=== PATIENT | female | born 1990 | race Caucasian/White ===

== ENCOUNTER 2018-03-03 13:21 | Emergency (ER) | payer OTHER ==
[2018-03-03 13:54] VITALS: BP 126/71; PULSE 68; TEMP 98.7; BMI 29.9
--- NOTE | 2018-03-03 14:13 | PDOC ---
History of Present Illness - General Chief Complaint: Wound Stated Complaint: INFECTION IN LT KNEE Time Seen by Provider: 03/03/18 14:00 History Source: Patient Exam Limitations: Clinical Condition - History of Present Illness Initial Comments: 03/03/18 14:08 Patient with no past medical history presenting with complaint of left knee pain and swelling for 3 days and patient with redness over her left knee. Patient report had small open wound of unknown etiology on top of left knee which has been draining yellow fluid for 2 days. She reports she saw her PCP yesterday who started her on antibiotics but antibiotics is not covered by her insurance. She reported PCP took a swab of the wound to be sent to the lab. Patient sent here by PCP to rule out septic arthritis. Patient declined aspiration of the left knee area patient reported pain worse with ambulation to left knee. He denies fever, chills, body aches. Patient denies any other symptoms 03/03/18 14:14 Past History - Past Medical History Allergies/Adverse Reactions: Allergies Allergy/AdvReac Type Severity Reaction Status Date / Time No Known Allergies Allergy Verified 03/03/18 13:51 Home Medications: Ambulatory Orders Cephalexin [Keflex] 500 mg PO BID 7 Days #14 capsule 03/03/18 Ibuprofen 800 mg PO TID PRN #12 tablet 03/03/18 Mupirocin Ointment [Bactroban 2% Ointment -] 1 applic TP BID PRN #1 tube Sulfamethoxazole/Trimethoprim [Bactrim Ds -] 1 tab PO BID #14 tablet 03/03/18 COPD: No DVT: No - Immunization History Immunization Up to Date: No - Suicide/Smoking/Psychosocial Hx Smoking History: Never smoked Information on smoking cessation initiated: No Drug/Substance Use Hx: No Substance Use Type: None Review of Systems - Review of Systems Is the patient limited Cymro proficient: No Constitutional: Yes: Other (skin redness to left knee with wound draining yellow discharge). No: Chills, Diaphoresis, Fever, Loss of Appetite, Malaise, Night Sweats, Weakness, Weight Stable, Unintentional Wgt. Loss, Unexplained wgt Loss HEENTM: No: Eye Pain, Blurred Vision, Tearing, Recent change in vision, Double Vision, Cataracts, Ear Pain, Ocular Prothesis, Ear Discharge, Nose Pain, Nose Congestion, Tinnitus, Nose Bleeding, Hearing Loss, Throat Pain, Throat Swelling , Mouth Pain, Dental Problems, Difficulty Swallowing, Mouth Swelling, Other Respiratory: No: Cough, Orthopnea, Shortness of Breath, SOB with Exertion, SOB at Rest, Stridor, Wheezing, Productive cough, Hemoptysis, Other Cardiac (ROS): No: Chest Pain, Edema, Irregular Heart Rate, Lightheadedness, Palpitations, Syncope, Chest Tightness, Other ABD/GI: No: Abdominal Distended, Abd. Pain w/ defecation, Blood Streaked Bowels , Constipated, Diarrhea, Difficulty Swallowing, Nausea, Poor Appetite, Poor Fluid Intake, Rectal Bleeding, Vomiting, Indigestion, Abdominal cramping, Tarry Stools, Other Musculoskeletal: Yes: Joint Pain (left knee), Joint Swelling (left knee). No: Joint Stiffness Integumentary: Yes: Change in Color (left knee cap), Erythema (top of left knee) . No: Bruising, Change in Hair/Nails, Dryness, Flushing, Lesions, Lumps, Pallor , Pruritus, Rash, Sweating, Other Neurological: No: Headache, Numbness, Paresthesia, Pre-Existing Deficit, Seizure , Tingling, Tremors, Weakness, Unsteady Gait, Ataxia, Dizziness, Other Psychiatric: No: Anxiety, Depression, Frequent Crying, Stressors, Sleep Pattern Change, Emotional Problems, Mood Swings, Change in Appetite, Other All Other Systems: Reviewed and Negative *Physical Exam - Vital Signs Last Vital Signs Temp Pulse Resp BP Pulse Ox 98.7 F 68 16 126/71 99 03/03/18 13:51 03/03/18 13:51 03/03/18 13:51 03/03/18 13:51 03/03/18 13:51 - Physical Exam Comments: 03/03/18 14:15 GENERAL: Well developed, well nourished. Awake and alert. No acute distress. HEENT: Normocephalic, atraumatic. PERRLA, EOMI. No conjunctival pallor. Sclera are non- icteric. Moist mucous membranes. Oropharynx is clear. NECK: Supple. Full ROM. No JVD. Carotid pulses 2+ and symmetric, without bruits. No thyromegaly. No lymphadenopathy. CARDIOVASCULAR: Regular rate and rhythm. No murmurs, rubs, or gallops. Distal pulses are 2+ and symmetric. PULMONARY: No evidence of respiratory distress. Lungs clear to auscultation bilaterally. No wheezing, rales or rhonchi. ABDOMINAL: Soft. Non-tender. Non-distended. No rebound or guarding. No organomegaly. Normoactive bowel sounds. MUSCULOSKELETAL Normal range of motion at all joints. Swelling to left knee medial and dorsal aspect of knee. moderate erythema to top of left knee to wound area. EXTREMITIES: No cyanosis. No clubbing. No edema. No calf tenderness. SKIN: Moderate erythema to top kneecap with small healing open wound over kneecap no drainage from wound. wound closed. Mild swelling to kneecap left knee. Mild increased warmth to top of her left knee. NEUROLOGICAL: Alert, awake, appropriate. Cranial nerves 2-12 intact. No deficits to light touch and temperature in face, upper extremities and lower extremities. No motor deficits in the in face, upper extremities and lower extremities. Normoreflexic in the upper and lower extremities. Normal speech. Toes are down- going bilaterally. Gait is normal without ataxia. PSYCHIATRIC: Cooperative. Good eye contact. Appropriate mood and affect. General Appearance: Yes: Nourished, Appropriately Dressed. No: Apparent Distress ED Treatment Course - LABORATORY CBC & Chemistry Diagram: 03/03/18 14:15 - RADIOLOGY Radiology Studies Ordered: Category Date Time Status KNEE 3 POS-LEFT [RAD] Stat Radiology 03/03/18 14:07 Ordered Medical Decision Making - Medical Decision Making 03/03/18 14:18 Patient presented with redness and pain to left knee with wound to the top of left knee and patient declined knee aspiration. Patient rather do x-ray and lab work and be treated with orthopedics follow-up. Advised patient on the possibility of knee joint infection. Patient will rather not get joint aspiration. X-ray of left knee ordered and labs ordered as well. Treat based on x-ray and lab results 03/03/18 15:48 x-ray left knee shows no acute pathology. No evidence of joint effusion. CBC shows no elevated the wbc. Patient will be discharged home with outpatient treatment given afebrile with no elevated no acute pathology on x-ray with orthopedics follow-up *DC/Admit/Observation/Transfer Diagnosis at time of Disposition: Left anterior knee pain, Cellulitis of left knee - Discharge Dispostion Disposition: HOME Condition at time of disposition: Good Decision to Admit order: No - Prescriptions Prescriptions: Cephalexin [Keflex] 500 mg PO BID 7 Days #14 capsule Ibuprofen 800 mg PO TID PRN #12 tablet PRN Reason: knee pain Mupirocin Ointment [Bactroban 2% Ointment -] 1 applic TP BID PRN #1 tube PRN Reason: knee wound Sulfamethoxazole/Trimethoprim [Bactrim Ds -] 1 tab PO BID #14 tablet - Referrals Referrals: Nicolle Turcios MD [Primary Care Provider] - Justice Camejo MD [Staff Physician] - - Patient Instructions Printed Discharge Instructions: DI for Wound Infection, DI for Cellulitis -- Adult Additional Instructions: Take medication as prescribed. Follow up with orthopedics in 5 days - Post Discharge Activity
[2018-03-03 14:27] LABS: BASO % 0.8 % (0-2.0); EOS % 0.8 % (0-4.5); HEMATOCRIT 38.6 % (32.4-45.2); HEMOGLOBIN 12.8 GM/dL (10.7-15.3); LYMPH % 24.1 % (8-40); MCH 29.5 pg (25.7-33.7); MEAN CELL VOLUME 89.2 fl (80-96); MEAN PLT VOLUME 10.5 fl (7.5-11.1); NEUT % 66.3 % (42.8-82.8); PLATELET COUNT 199 K/MM3 (134-434); RBC 4.33 M/mm3 (3.60-5.2); RDW 13.6 % (11.6-15.6)
== END 2018-03-03 15:58 | disposition home or self-care (01) ==
LOC: JERFT 13:21
DX: L03.116 Cellulitis of left lower limb (principal)
CPT/HCPCS: 36415; 73562-TC-LT-FY; 84703; 85025; 99281-25